=== PATIENT | male | born 1980 | race Caucasian/White ===

== ENCOUNTER 2016-11-07 10:31 | Day surgery (SDC) | payer OTHER ==
--- NOTE | 2016-11-02 10:50 | HISTORY AND PHYSICAL E ---
History and Physical NAME: KARLO JEREZ : 1980 AGE: 36Y ADMITTED: 11/07/2016 ROOM: REFERRING: [facility]. CHIEF COMPLAINT: Dysphagia, multiple endoscopies and dilatations. HISTORY OF PRESENT ILLNESS: Scope 2014 showed the following: Chronic esophagitis, stricture, eosinophilic esophagitis. We dilated him to size 12. Recently the patient has persistent dysphagia. Another scope was done April where I dilated him size 10, 11, and 12. The biopsy was consistent with greater than 20 eosinophils consistent with eosinophilic esophagitis; his hemoglobin 15. Another endoscopy was done on 05/28, and he was dilated through the scope 12, 13.5, and 15. At this time, the patient is for admission outpatient scope and dilate. FAMILY HISTORY: His father is alive, 57. Mom is alive, 55. REVIEW OF SYSTEMS: NEUROLOGIC: Negative. GASTROINTESTINAL: Eosinophilic esophagitis, stricture. CARDIAC: Negative. ENDOCRINE: Negative. PHYSICAL EXAMINATION: VITAL SIGNS: Blood pressure 120/80, pulse 80, respirations 18, temperature is 98. HEAD, EYES, EARS, NOSE, THROAT: Normal. NECK: Supple. LUNGS: Clear. ABDOMEN: Soft. NEUROLOGIC: Negative. CONCLUSION: Eosinophilic esophagitis with a stricture, multiple dilatations. PLAN: Scope, dilate, pain medication to control the pain after dilatation. Meanwhile continue Nexium, continue fluticasone 440 mcg inhaled and swallow. The patient is to see us on followup after endoscopy scheduled for 11/07. DICTATING PHYSICIAN: LINWOOD OCAMPO M.D. [id number] [id number] Y#: [id number] ID: [id number] JOB#: [id number] ACCT: [id number] cc:[facility] LINWOOD OCAMPO M.D. >
[~2016-11-07 10:31] MED LIST: EPINEPHRINE INJ 1 MG/10 ML DISP.SYRIN ONE; FLUMAZENIL INJ 0.5 MG/5 ML VIAL IV ONE; GLYCOPYRROLATE INJ 0.4 MG/2 ML VIAL ONE; NALOXONE HCL INJ/PF 0.4 MG/1 ML SDV ONE; ONDANSETRON HCL INJ/PF 4 MG/2 ML SDV ONE; PROMETHAZINE HCL INJ 25 MG/1 ML VIAL ONE
[2016-11-07] MEDS: MIDAZOLAM 2 MG/2 ML INJ ONE ×4 (11:13→11:31)
[2016-11-07] MEDS: FENTANYL CITRATE INJ/PF 100 MCG/2 ML AMPUL ONE ×2 (11:15→11:19)
[2016-11-07 12:45] VITALS: BP 118/84
[2016-11-07 12:52] LABS: ABSOLUTE BASOPHILS # (AUTO) 0.1 10^3/uL (0.0-0.2); ABSOLUTE EOSINOPHILS # (AUTO) 0.6 10^3/uL (0.0-0.6); ABSOLUTE LYMPHOCYTES (AUTO) 1.5 10^3/uL (0.5-4.7); ABSOLUTE MONOCYTES (AUTO) 0.5 10^3/uL (0.1-1.4); ABSOLUTE NEUT (AUTO) 2.5 10^3/uL (1.7-8.2); BASOPHILS % (AUTO) 1.4 % (0-2); EOSINOPHILS % (AUTO) 11.3 % (0-6); HEMATOCRIT 43.9 % (37.9-51.0); HEMOGLOBIN 14.9 g/dL (13.5-17.0); HGB HCT DIFFERENCE 0.8; LYMPHOCYTES % (AUTO) 28.9 % (13-45); MEAN CORPUSCULAR HEMOGLOBIN 31.5 pg (27.0-33.4); MEAN CORPUSCULAR HGB CONC 33.9 g/dL (32.0-36.0); MEAN CORPUSCULAR VOLUME 93 fl (80-97); RED BLOOD COUNT 4.74 10^6/uL (4.35-5.55); RED CELL DISTRIBUTION WIDTH 13.1 % (11.5-14.0); SEGMENTED NEUTROPHILS % (AUTO) 49.4 % (42-78); WHITE BLOOD COUNT 5.1 10^3/uL (4.0-10.5)
[2016-11-07 13:45] LABS: ERYTHROCYTE SEDIMENTATION RATE 4 mm/hr (0-15)
--- NOTE | 2016-11-07 15:20 | DISCHARGE SUMMARY E ---
Discharge Summary NAME: KARLO JEREZ : 1980 AGE: 36Y ADMITTED: 11/07/2016 DISCHARGED: 11/07/2016 HISTORY: The patient is a 36-year-old male with a 2-year history of eosinophilic esophagitis, multiple endoscopies, multiple dilatations. Today's endoscopy was achieved with Versed 6 mg and Fentanyl 150 mcg, adequate sedation. The patient did have balloon dilatation, size 12 and 13.5, and he did have a stricture in the distal esophagus with multiple esophageal rings and mild gastritis. DISCHARGE PLAN: 1. Full liquid diet for 2-3 days. 2. The patient is to take his Nexium. 3. Hold the fluticasone spray. 4. Continue Percocet for pain. 5. Baseline CBC with CRP for further evaluation of the inflammation of the esophagus. FINAL DIAGNOSIS: Esophageal esophagitis. PROCEDURE: EGD with balloon dilatation, size 12 and 13.5. DICTATING PHYSICIAN: LINWOOD OCAMPO M.D. 1209M 1151 Y#: [id number] ID: [id number] JOB#: [id number] ACCT: [id number] cc:[facility] LINWOOD OCAMPO M.D. >
--- NOTE | 2016-11-07 15:22 | OPERATIVE REPORT E ---
Operative Report NAME: KARLO JEREZ : 1980 AGE: 36Y DATE OF SURGERY: 11/07/2016 ROOM: PREOPERATIVE DIAGNOSES: 1. Dysphagia. 2. Long history of eosinophilic esophagitis. 3. Previous history of endoscopy and dilatation. POSTOPERATIVE DIAGNOSES: 1. Esophageal stricture in the distal esophagus. 2. Multiple esophageal rings which are most likely part of the eosinophilic esophagitis. 3. Mild gastritis. OPERATIONS: 1. Esophagoscopy. 2. Gastroscopy. 3. Duodenoscopy. 4. Balloon dilatation. SURGEON: LINWOOD OCAMPO M.D. TISSUE REMOVED OR ALTERED: Balloon dilatation, size 12, x3, multiple locations. Balloon dilatation, size 13.5, twice. PROCEDURE: Baby scope passed under guided vision. No difficulties. Esophagoscopy: The scope advanced into the distal esophagus. Originally there was 1 ring, and we were not able to pass the scope into the stomach. Dilatation with balloon size 12 was done on multiple occasions, and on the third dilatation the scope passed into the GE junction with no force. It was spontaneous introduction of the scope into the stomach. Gastroscopy: No ulcers. Duodenoscopy: No ulcers. The scope was withdrawn back, and balloon size 13.5 was applied twice and the scope passed into the stomach again. So, the patient was dilated to size 13.5. There was [id number] amount of heme, and I felt that no further endoscopy could be done on today's dilatation because of the heme and the friability. Patient may need further endoscopy and dilatation in 6 weeks pending his clinical response. FINAL DIAGNOSES: 1. Eosinophilic esophagitis. 2. Distal esophageal rings causing dysphagia. 3. Dilatation to sizes 12 and 13.5. DISCHARGE INSTRUCTIONS: Patient to be discharged on full liquid. He was given Percocet 5/325 mg one p.o. 3 times daily, #15 with 1 refill. He is to continue his Nexium. Patient to hold the fluticasone for 3 days but continue Nexium. Patient to continue full liquid diet, hold aspirin and nonsteroidal for a week. Patient tolerated procedure well, was discharged to his room in stable condition. His sedation included 6 mg Versed and 150 mcg fentanyl. DICTATING PHYSICIAN: LINWOOD OCAMPO M.D. 1227M 1147 Y#: [id number] ID: [id number] JOB#: [id number] ACCT: [id number] cc:[facility] LINWOOD KUMAR M.D.
== END 2016-11-07 12:50 | disposition home or self-care (01) ==
LOC: END 10:31
PROVIDERS: ATTEND Specialist
PROC: 0D758ZZ Dilation of Esophagus, Via Natural or Artificial Opening Endoscopic (ICD-10-PCS; principal; 2016-11-07 11:00)
DX: K21.9 Gastro-esophageal reflux disease without esophagitis (principal); K22.2 Esophageal obstruction; K29.70 Gastritis, unspecified, without bleeding; K20.0 Eosinophilic esophagitis
CPT/HCPCS: 43249; 36415; 85025; 85652; 86140; C1726; J2250; J3010; J2405; J0171; J2310; J2550; J3490

== ENCOUNTER → 2016-11-09 | Outpatient (CLI) | payer OTHER ==
[2016-11-09 13:07] LABS: PV SEMEN COLOR STRAW
[2016-11-09 13:08] LABS: PV NONMOTILE COUNT1 0; PV NONMOTILE COUNT2 0; PV ROUND CELL COUNT1 0; PV ROUND CELL COUNT2 0; PV SEMEN LIQUEFACTION 35 MINUTES (<61); PV SEMEN PH 8.4 (>7.1); PV SEMEN VISCOSITY HIGH (NORMAL)
== END ==
LOC: LAB 11:54
PROVIDERS: ATTEND Urology
DX: Z30.09 Encounter for other general counseling and advice on contraception (principal)
CPT/HCPCS: 89321